=== PATIENT | female | born 1945 | race Caucasian/White ===

== ENCOUNTER 2019-11-03 12:47 | Outpatient (RCR) | payer MEDICARE | END 2019-11-07 | LOC: M PT 12:47 | PROVIDERS: ATTEND Nurse Practitioner Family | DX: I89.0 Lymphedema, not elsewhere classified (principal) ==

== ENCOUNTER 2019-12-07 13:30 | Outpatient (RCR) | payer MEDICARE | END 2019-12-08 | LOC: M PT 13:30 | PROVIDERS: ATTEND Nurse Practitioner Family | DX: I89.0 Lymphedema, not elsewhere classified (principal) ==

== ENCOUNTER 2019-12-12 12:00 | Outpatient (RCR) | payer MEDICARE | END 2020-01-08 | LOC: M PT 12:00 | PROVIDERS: ATTEND Nurse Practitioner Family | DX: I89.0 Lymphedema, not elsewhere classified (principal) ==

== ENCOUNTER → 2022-01-11 | Outpatient (CLI) | payer MEDICARE ==
[~2022-01-11] MED LIST: ALEV220T22 PO; ATOR1TAB19 PO; EQL400CA9 PO; FURO20TA2 PO; LOSA100T45 PO; METO1TAB7 PO; PARO20TA3 PO; SPIR-10 PO; VITA250T30 PO
== END ==
LOC: M LABSMTC 09:51
PROVIDERS: ATTEND Anesthesiology
DX: Z01.812 Encounter for preprocedural laboratory examination (principal); Z20.822 Contact with and (suspected) exposure to COVID-19

== ENCOUNTER 2022-01-16 06:43 | Day surgery (SDC) | payer MEDICARE ==
[~2022-01-16] VITALS: Ht 175.3 cm; Wt 92.5 kg
[2022-01-16] MEDS ORDERED: LR 1,000 ML IV SCH (07:05)
[2022-01-16] MEDS ORDERED: LIDOCAINE 1% MDV 20ML VIAL As Ordered ONE (07:17)
[2022-01-16] MEDS ORDERED: CIPROFLOXACIN 400 MG in IV 1 EA IV ONE (07:45)
[2022-01-16] MEDS ORDERED: propofoL 200 MG/20 ML VIAL As Ordered ONE (08:12)
[2022-01-16] MEDS ORDERED: MIDAZOLAM INJ 2MG/2ML VIAL (J2250 PER 1MG) As Ordered ONE (08:12)
[2022-01-16] MEDS ORDERED: fentaNYL 100 MCG/2 ML INJECTION As Ordered ONE (08:12)
[2022-01-16] MEDS ORDERED: LIDOCAINE 2% 100MG/5ML SDV (FOR ANES.) As Ordered ONE (08:12)
[2022-01-16] MEDS ORDERED: NEOSPORIN TOP OINT 15GM As Ordered ONE (08:24)
[2022-01-16] MEDS ORDERED: KETOROLAC 60MG 2ML VIAL As Ordered ONE (09:00)
[2022-01-16 09:42] VITALS: BP 143/87
== END 2022-01-16 10:06 | disposition home or self-care (01) ==
LOC: M SDC 06:43
PROVIDERS: ATTEND Urology
DX: N90.89 Other specified noninflammatory disorders of vulva and perineum (principal); I10 Essential (primary) hypertension; E78.5 Hyperlipidemia, unspecified; J44.9 Chronic obstructive pulmonary disease, unspecified; F17.210 Nicotine dependence, cigarettes, uncomplicated; G47.33 Obstructive sleep apnea (adult) (pediatric); Z85.118 Personal history of other malignant neoplasm of bronchus and lung; Z92.21 Personal history of antineoplastic chemotherapy; Z92.3 Personal history of irradiation; Z79.899 Other long term (current) drug therapy; Z88.7 Allergy status to serum and vaccine; Z88.0 Allergy status to penicillin; Z88.1 Allergy status to other antibiotic agents; Z91.040 Latex allergy status
CPT/HCPCS: 56441; J0744; J1885; J2250; J3010